=== PATIENT | male | born 1955 | race Caucasian/White ===

== ENCOUNTER 2017-09-22 23:19 | Inpatient (IN) | payer OTHER ==
[~2017-09-22] VITALS: Ht 167.6 cm; Wt 81.8 kg
[2017-09-23 00:11] LABS: BASOPHIL % 0.5 % (0-2); PLATELET COUNT 261 x10^3mcL (130-400); RED CELL DISTRIBUTION WIDTH 13.9 % (11.5-14.5)
[2017-09-23 00:17] LABS: ALKALINE PHOSPHATASE 87 U/L (46-116); ALT/SGPT 21 U/L (16-63); AST/SGOT 15 U/L (15-37); BILIRUBIN TOTAL 0.3 mg/dL (0.20-1.00); CARBON DIOXIDE 28.3 mmol/L (21-32); CHLORIDE SERUM 104 mmol/L (98-107); CREATININE SERUM 1.1 mg/dL (0.7-1.3); GFR1 > 60 mL/min; LIPASE 405 IU/L (73-393); POTASSIUM SERUM 3.9 mmol/L (3.5-5.1); SODIUM SERUM 141 mmol/L (136-145)
[2017-09-23 00:22] LABS: TOTAL PROTEIN, SERUM 8.6 g/dL (6.4-8.2)
[2017-09-23 00:23] LABS: GLUCOSE SERUM 53 mg/dL (74-106)
[2017-09-23 01:14] LABS: microscopic required? NO
[2017-09-23 01:44] LABS: UA SPECIFIC GRAVITY <=1.005 (1.005-1.035); urine erythrocyte NEGATIVE (NEGATIVE)
[2017-09-23] MEDS ORDERED: METFORMIN HYD1000 M2 PO ×2 (01:56→02:06)
[2017-09-23] MEDS ORDERED: NIFEDICAL XL60 MG PO (02:00)
[2017-09-23] MEDS ORDERED: POTASSIUM99 M1 PO (02:01)
[2017-09-23] MEDS ORDERED: MAGNESIUM27 MG PO (02:02)
[2017-09-23] MEDS ORDERED: BAYER ASPIRIN C81 MG PO (02:04)
[2017-09-23] MEDS ORDERED: BACLOFEN10 MG PO (02:05)
[2017-09-23] MEDS ORDERED: LOVASTATIN20 MG PO (02:07)
[2017-09-23] MEDS ORDERED: LIO10 PO (02:07)
[2017-09-23 05:07] VITALS: BP 150/96
[2017-09-23 06:25] VITALS: BP 150/96
[2017-09-23 08:00] LABS: CALCIUM 8.3 mg/dL (8.5-10.1); CARBON DIOXIDE 26.8 mmol/L (21-32); CHLORIDE SERUM 104 mmol/L (98-107); CREATININE SERUM 0.9 mg/dL (0.7-1.3); GFR1 > 60 mL/min; GLUCOSE SERUM 69 mg/dL (74-106); LIPASE 842 IU/L (73-393); POTASSIUM SERUM 3.5 mmol/L (3.5-5.1); SODIUM SERUM 139 mmol/L (136-145)
[2017-09-23 09:26] VITALS: BP 137/99
[2017-09-23 13:35] VITALS: BP 140/87
[2017-09-23 18:00] VITALS: BP 139/89
[2017-09-23 18:52] LABS: AMYLASE 93 U/L (25-115); LIPASE 344 IU/L (73-393)
[2017-09-23 20:15] VITALS: BP 139/89
== END 2017-09-23 21:57 | disposition home or self-care (01) | DRG 420 ==
LOC: ED 23:19 → DU 09-23 03:19
PROVIDERS: Emergency Medicine; Internal Medicine Pulmonary Disease; ADMIT Internal Medicine Pulmonary Disease
DX: E11.649 Type 2 diabetes mellitus with hypoglycemia without coma (principal); I10 Essential (primary) hypertension; Z86.73 Personal history of transient ischemic attack (TIA), and cerebral infarction without residual deficits; Z79.4 Long term (current) use of insulin; Z23 Encounter for immunization
CPT/HCPCS: 82962; 90658; 90732; J1956; J3490; J7030; J7042; J7070; Q0092

== ENCOUNTER 2017-09-29 16:26 | Inpatient (IN) | payer OTHER ==
[~2017-09-29] VITALS: Ht 167.6 cm; Wt 79.4 kg
[~2017-09-29 16:26] MED LIST: BACLOFEN10 MG PO; BAYER ASPIRIN C81 MG PO; LIO10 PO; LOVASTATIN20 MG PO; MAGNESIUM27 MG PO; METFORMIN HYD1000 M2 PO; NIFEDICAL XL60 MG PO; POTASSIUM99 M1 PO
--- NOTE | 2017-09-29 16:39 | NUR ---
PT BIBA FROM HOME FOR C/O ABD PAIN AND CONSTIPATION, LAST BM X1 WEEK PER MEDICS, PT HAS HX OF CVA, GCS 14, LIVES AT HOME WITH MOTHER, PT IS NONAMBULATORY, PT UNABLE TO DESCRIBE ABD PAIN, PT REPORTS "IN THE FRONT", PT ABLE TO STATE HIS FIRST NAME WHEN ASKED, UNABLE TO STATE , PT STATES "KALLIE", BS WAS 137 PER MEDICS, PT SINUS TACH IN 140'S PER EMS, THEY ATTEMPTED IV STICK BUT PT TREMORING, REPORT TO MONALISA ROWLAND TO ASSUME CARE
--- NOTE | 2017-09-29 16:43 | NUR ---
REC'D BIBA, AAOX2, C/O ABD PAIN SINCE YESTERDAY, STATES VOMITED YESTERDAY. PT POINTS TO STOMACH, UNABLE TO COMMUNICATE LEVEL OF PAIN. ON RA, BREATHING TACHYPNEA WITH USE OF ACCESSORY MUSCLES. WILL CONTINUE TO MONITOR.
[2017-09-29 17:18] LABS: BASOPHIL % 0.3 % (0-2); PLATELET COUNT 312 x10^3mcL (130-400); RED CELL DISTRIBUTION WIDTH 13.6 % (11.5-14.5)
[2017-09-29 17:25] LABS: CALCIUM 9.1 mg/dL (8.5-10.1); CARBON DIOXIDE 28.4 mmol/L (21-32); CHLORIDE SERUM 99 mmol/L (98-107); CREATININE SERUM 1.1 mg/dL (0.7-1.3); GFR1 > 60 mL/min; GLUCOSE SERUM 157 mg/dL (74-106); SODIUM SERUM 138 mmol/L (136-145)
[2017-09-29 17:41] LABS: CK-MB 0.6 ng/mL (0-3.6)
[2017-09-29 17:46] LABS: ALBUMIN 3.9 g/dL (3.4-5.0); ALKALINE PHOSPHATASE 93 U/L (46-116); ALT/SGPT 21 U/L (16-63); AST/SGOT 13 U/L (15-37); BILIRUBIN TOTAL 0.4 mg/dL (0.20-1.00)
[2017-09-29 17:47] LABS: TOTAL PROTEIN, SERUM 8.9 g/dL (6.4-8.2)
--- NOTE | 2017-09-29 19:09 | NUR ---
PROVIDED REPORT TO ASHLEY ROWLAND FOR CONTINUITY OF CARE.
--- NOTE | 2017-09-29 19:12 | NUR ---
PT RESTING, WITH FAMILY AT BEDSIDE. PT IN NO ACUTE DISTRESS. PER FAMILY PT HAS ATAXIA, DUE TO HX OF STROKE. PT WAS ABLE TO VERBALIZED HE FEELS GOD
--- NOTE | 2017-09-29 20:31 | NUR ---
MEDICATED PT PER E-MAR, PT TOLERATED
[2017-09-29] MEDS ORDERED: METFORMIN HCL1000 MG PO (20:39)
[2017-09-29] MEDS ORDERED: POTASSIUM CHLO10 MEQ (20:40)
[2017-09-29] MEDS ORDERED: MAGNESIUM OXID400 MG (20:40)
[2017-09-29] MEDS ORDERED: LOVASTATIN20 MG (20:41)
[2017-09-29] MEDS ORDERED: BAYER ASPIRIN C81 MG PO (20:41)
[2017-09-29] MEDS ORDERED: BACLOFEN20 MG (20:41)
[2017-09-29] MEDS ORDERED: NIFEDIPINE60 MG PO (20:42)
[2017-09-29 20:49] LABS: microscopic required? YES; urine erythrocyte 2+ (NEGATIVE)
--- NOTE | 2017-09-29 20:50 | NUR ---
GAVE REPORT TO MARTÍN ROWLAND, TO ASSUME CARE POST TRANSFER
--- NOTE | 2017-09-29 21:15 | NUR ---
RECEIVED PT FROM ED VIA [facility], CAME IN DUE TO ABDOMINAL PAIN AND CONSTIPATION X1 WEEK. AAOX1 (PERSON ONLY). GARBLED SPEECH. W/ LEFT SIDED WEAKNESS. NO SOB NOTED, LUNG SOUNDS CTA. NO S/S OF CHEST PAIN/PRESSURE. NO S/S OF ABDOMINAL PAIN. BOWEL SOUNSD HYPOACTIVE. LAST BM WAS ABOUT 1 WEEK AGO. ABDOMEN IS MILDLY FIRM. W/ MALAYSIAN 16 GARCIA CATHETER, SECURED W/ STATLOCK ON THE ANTERIOR ASPECT OF THE RIGHT THIGH, DRAINING W/ BRYCE COLORED URINE. W/ MILD PENILE BLEED NOTED. ON AIR MATTRESS. HEELS ELEVATED W/ PILLOW. W/ BLANCHABLE REDNESS ON THE BUTTOCKS, DIANELYS. HOB ELEVATED AT 40 DEG. SIDE RAILS UPX2. CALL LIGHT ON REACH. PRIMARY NURSE MARTÍN AT BEDSIDE FOR CONTINUITY OF CARE.
[2017-09-29 21:26] VITALS: BP 123/84
[2017-09-29 21:29] VITALS: Ht 167.6 cm; Wt 79.4 kg
--- NOTE | 2017-09-29 21:30 | NUR ---
RECEIVED PT FROM ER, PT SEEN, AWAKE, ALERT AND ORIENTED TO SELF ONLY, GARBLED SPEECH, BLOOD SUGAR CHECKED-128 MG/DL, PT ABLE TO DRINK SOME LIQUID AND WITHOUT ANY DIFFICULTY OR ASP, DULCOLAX SUPP GIVEN X 1 UPON ADMISSION, GARCIA CARE GIVEN, PT'S SISTER VERNON CALLED AND UPDATED PT'S CONDITION WITH FAMILY, BED ALARM ON, SIDE RAILS UP, CLUTTER FREE ENVIRONMENT MAINTAINED, NO DISTRESS NOTED, WILL KEEP TO MONITOR.
--- NOTE | 2017-09-30 00:30 | NUR ---
ROUNDS MADE, PT AWAKE AT THIS TIME AND STATED THAT CAN'T FALL ASLEEP, RESTORIL 15 MG VIA ORAL ADMINISTERED, STILL NO BM AFTER DULCOLAX SUPP, BED ALARM ON, NO DISTRESS NOTED, WILL KEEP TO MONITOR.
--- NOTE | 2017-09-30 01:03 | NUR ---
PT ASLEEP BUT EASILY AROUSABLE AFTER MEDICATED WITH RESTORIL PO, IVF INFUSING WELL, NO DISTRESS NOTED, WILL KEEP TO MONITOR.
--- NOTE | 2017-09-30 01:23 | NUR ---
PT AWAKE AND STATED THAT HE IS HAVING BACK PAIN 09/04, CALLED DR ANG AND NEW ORDER RECEIVED VIA TELEPHONE FOR DILAUDID 0.5MG IVP Q4HRS PRN AND NORCO 5/325 PO Q4HRS PRN, ORDER ENTERED AND DILAUDID 0.5MG VIA IVP ADMINISTERED ORDERED.
--- NOTE | 2017-09-30 02:02 | NUR ---
ROUNDS MADE, PT ASLEEP, BREATHING EVEN AND UNLABORED, NO RESP DISTRESS NOTED, BED ALARM ON, NO DISTRESS NOTED, WILL KEEP TO MONITOR.
--- NOTE | 2017-09-30 05:29 | NUR ---
PT ASLEEP BUT EASILY AROUSABLE, SLEPT ON AND OFF WHOLE NIGHT, C/O OF BACK PAIN, ADMINISTERED DILAUDID 0.5MG VIA IVP X 1 WITH GOOD RELIEF, IVF INFUSING WELL, STILL WITH MILD PENILE BLEEDING AROUND GARCIA SITE, MORNING BLOOD SUGAR-81 MG/DL, MORNING CARE GIVEN, NO DISTRESS NOTED, WILL KEEP TO MONITOR.
[2017-09-30 05:30] VITALS: BP 124/82
[2017-09-30 07:10] LABS: BASOPHIL % 0.6 % (0-2); PLATELET COUNT 271 x10^3mcL (130-400); RED CELL DISTRIBUTION WIDTH 13.9 % (11.5-14.5)
[2017-09-30 07:18] LABS: CALCIUM 8.4 mg/dL (8.5-10.1); CARBON DIOXIDE 29.5 mmol/L (21-32); CHLORIDE SERUM 103 mmol/L (98-107); CREATININE SERUM 0.9 mg/dL (0.7-1.3); GFR1 > 60 mL/min; GLUCOSE SERUM 89 mg/dL (74-106); POTASSIUM SERUM 4.4 mmol/L (3.5-5.1); SODIUM SERUM 139 mmol/L (136-145)
--- NOTE | 2017-09-30 07:45 | NUR ---
ALERT AND ORIENTED. SITTING UP EATING BREAKFAST. BREATHING FREELY ON RA. ABDOMINAL TENDERNESS TO PALPATION. HAD BM DURING TEACHER COUNSELOR. BREATHING FREELY ON RA. MED-SURG PT. NS INFUSING 70 CC HOUR. GARCIA DRAINING DARK BRYCE URINE. VSS. AFEBRILE. HOB ELEVATED FOR BREAKFAST. BED IN LOW POSITON. BED ALARM ON. SR UP X 2. CALL LIGHT WITHIN REACH.
[2017-09-30] MEDS ORDERED: CIPRO500 MG PO (08:55)
[2017-09-30 09:16] VITALS: BP 133/87
--- NOTE | 2017-09-30 09:35 | NUR ---
RADHA AND IV DC'D ORDERED BY DR. HERNANDEZ. PT TO BE DC'D TODAY.
[2017-09-30 09:53] VITALS: BP 133/87
--- NOTE | 2017-09-30 12:51 | NUR ---
PT WAITING FOR SISTER TO COME PICK HIM UP. DRESSED AND READY TO GO.
--- NOTE | 2017-09-30 14:00 | NUR ---
DC'D TO HOME. PICKED UP BY SISTER VERNON WHO ALSO SIGNED DISCHARGE INSTRUCTIONS FOR PT. PT UNABLE. PRESCRIPTION GIVEN FOR CIPRO.
== END 2017-09-30 13:55 | disposition home or self-care (01) | DRG 463 ==
LOC: ED 16:26 → MU 20:01
PROVIDERS: Emergency Medicine; Internal Medicine Pulmonary Disease; ADMIT Internal Medicine Pulmonary Disease
DX: N39.0 Urinary tract infection, site not specified (principal); I10 Essential (primary) hypertension; E11.9 Type 2 diabetes mellitus without complications; K59.00 Constipation, unspecified; Z86.73 Personal history of transient ischemic attack (TIA), and cerebral infarction without residual deficits; Z79.899 Other long term (current) drug therapy
CPT/HCPCS: 82962; 83880; J0696; J1170; J1650; J2405; J3010; J7030; Q0092

== ENCOUNTER 2017-11-02 02:49 | Inpatient (IN) | payer OTHER ==
[~2017-11-02] VITALS: Ht 180.3 cm; Wt 78.1 kg
[~2017-11-02 02:49] MED LIST changes: +BACLOFEN20 MG; +CIPRO500 MG PO; +LOVASTATIN20 MG; +MAGNESIUM OXID400 MG; +METFORMIN HCL1000 MG PO; +NIFEDIPINE60 MG PO; +POTASSIUM CHLO10 MEQ
[2017-11-02 04:01] LABS: BASOPHIL % 1.4 % (0-2); PLATELET COUNT 302 x10^3mcL (130-400); RED CELL DISTRIBUTION WIDTH 12.8 % (11.5-14.5)
[2017-11-02 04:05] LABS: CALCIUM 9.1 mg/dL (8.5-10.1); CARBON DIOXIDE 28.6 mmol/L (21-32); CHLORIDE SERUM 105 mmol/L (98-107); CREATININE SERUM 1.2 mg/dL (0.7-1.3); GFR1 > 60 mL/min; GLUCOSE SERUM 117 mg/dL (74-106); POTASSIUM SERUM 3.8 mmol/L (3.5-5.1); SODIUM SERUM 142 mmol/L (136-145)
[2017-11-02 04:20] LABS: microscopic required? NO
[2017-11-02 04:35] LABS: UA SPECIFIC GRAVITY >=1.030 (1.005-1.035); urine erythrocyte NEGATIVE (NEGATIVE)
[2017-11-02] MEDS ORDERED: METFORMIN HYD1000 M2 PO (07:05)
[2017-11-02] MEDS ORDERED: MAGNESIUM OXID400 MG PO (07:06)
[2017-11-02] MEDS ORDERED: ASPIR 8181 MG PO (07:06)
[2017-11-02] MEDS ORDERED: POTASSIUM99 M1 PO (07:06)
[2017-11-02] MEDS ORDERED: BACLOFEN10 MG PO (07:07)
[2017-11-02] MEDS ORDERED: LOVASTATIN10 MG PO (07:08)
[2017-11-02 16:04] VITALS: BP 133/77
[2017-11-02 17:01] VITALS: BP 139/90
== END 2017-11-02 19:10 | disposition home or self-care (01) | DRG 254 ==
LOC: ED 02:49 → MU 07:43
PROVIDERS: Emergency Medicine Emergency Medical Services; ADMIT Internal Medicine Pulmonary Disease
DX: K59.00 Constipation, unspecified (principal); I69.954 Hemiplegia and hemiparesis following unspecified cerebrovascular disease affecting left non-dominant side; I10 Essential (primary) hypertension; I69.021 Dysphasia following nontraumatic subarachnoid hemorrhage; E86.0 Dehydration; R33.9 Retention of urine, unspecified; R00.0 Tachycardia, unspecified; E11.9 Type 2 diabetes mellitus without complications; E78.5 Hyperlipidemia, unspecified
CPT/HCPCS: 82962; J0456; J0696; J3490; J7030

== ENCOUNTER 2018-04-24 09:24 | Observation (INO) | payer OTHER ==
[~2018-04-24] VITALS: Ht 175.3 cm; Wt 82.8 kg
[~2018-04-24 09:24] MED LIST changes: +ASPIR 8181 MG PO; +LOVASTATIN10 MG PO; +MAGNESIUM OXID400 MG PO
[2018-04-24] MEDS ORDERED: BACLOFEN10 MG PO (09:33)
[2018-04-24] MEDS ORDERED: METFORMIN HCL850 MG PO (09:34)
[2018-04-24 09:36] VITALS: Ht 175.3 cm; Wt 82.8 kg
[2018-04-24 10:17] LABS: CALCIUM 9.1 mg/dL (8.5-10.1); CHLORIDE SERUM 114 mmol/L (98-107); CREATININE SERUM 0.9 mg/dL (0.7-1.3); GFR1 > 60 mL/min; GLUCOSE SERUM 150 mg/dL (74-106); POTASSIUM SERUM 3.5 mmol/L (3.5-5.1); SODIUM SERUM 144 mmol/L (136-145)
[2018-04-24 10:22] LABS: ALBUMIN 3.5 g/dL (3.4-5.0); ALKALINE PHOSPHATASE 73 U/L (46-116); ALT/SGPT 23 U/L (16-63); AST/SGOT 17 U/L (15-37); BILIRUBIN TOTAL 0.7 mg/dL (0.20-1.00)
[2018-04-24 10:23] LABS: TOTAL PROTEIN, SERUM 8.3 g/dL (6.4-8.2)
[2018-04-24 11:23] LABS: BASOPHIL % 0.3 % (0-2); PLATELET COUNT 259 x10^3mcL (130-400); RED CELL DISTRIBUTION WIDTH 14.1 % (11.5-14.5)
[2018-04-24 14:28] LABS: CK-MB < 0.5 ng/mL (0-3.6); CREATINE KINASE 56 U/L (39-308)
[2018-04-24 14:30] VITALS: BP 114/60
[2018-04-24 15:09] VITALS: BP 114/60
[2018-04-24 16:42] LABS: microscopic required? YES; urine erythrocyte NEGATIVE (NEGATIVE)
[2018-04-24 18:51] LABS: CK-MB 0.9 ng/mL (0-3.6)
[2018-04-24 20:41] VITALS: BP 133/83
[2018-04-25 04:06] LABS: CALCIUM 8.8 mg/dL (8.5-10.1); CARBON DIOXIDE 29.6 mmol/L (21-32); CHLORIDE SERUM 108 mmol/L (98-107); CREATININE SERUM 0.8 mg/dL (0.7-1.3); GFR1 > 60 mL/min; GLUCOSE SERUM 106 mg/dL (74-106); HDL CHOLESTEROL 40 mg/dL (40-60); POTASSIUM SERUM 3.9 mmol/L (3.5-5.1); SODIUM SERUM 145 mmol/L (136-145); TRIGLYCERIDES 32 mg/dL (<150)
[2018-04-25 04:07] LABS: BASOPHIL % 0.8 % (0-2); PLATELET COUNT 250 x10^3mcL (130-400); RED CELL DISTRIBUTION WIDTH 14.5 % (11.5-14.5)
[2018-04-25 04:13] LABS: CHOLESTEROL 106 mg/dL (<200); CHOLESTEROL/HDL RATIO 2.7
[2018-04-25 04:19] LABS: CK-MB 0.8 ng/mL (0-3.6)
[2018-04-25 06:35] VITALS: BP 135/96
[2018-04-25 14:31] VITALS: BP 136/97
[2018-04-25 18:41] VITALS: BP 97/69
[2018-04-25] MEDS ORDERED: BACLOFEN10 MG PO (19:13)
[2018-04-25] MEDS ORDERED: METFORMIN HYD1000 M2 PO (19:14)
[2018-04-25 19:16] VITALS: BP 97/69
== END 2018-04-25 21:22 | disposition home or self-care (01) | DRG 113 ==
LOC: ED 09:24 → DU 10:55
PROVIDERS: Emergency Medicine; Internal Medicine
DX: J06.9 Acute upper respiratory infection, unspecified (principal); I69.354 Hemiplegia and hemiparesis following cerebral infarction affecting left non-dominant side; I10 Essential (primary) hypertension; K56.41 Fecal impaction; E11.9 Type 2 diabetes mellitus without complications; I69.393 Ataxia following cerebral infarction; I69.322 Dysarthria following cerebral infarction; I25.10 Atherosclerotic heart disease of native coronary artery without angina pectoris
CPT/HCPCS: 82962; 83880; 85378; 94150; A9500; G0378; J0132; J1650; J1885; J2785; J7030; J7042; J7613; J7620; J7644; Q0092

== ENCOUNTER 2019-04-06 23:26 | Inpatient (IN) | payer OTHER ==
[~2019-04-06] VITALS: Ht 175.3 cm; Wt 77.1 kg
[~2019-04-06 23:26] MED LIST changes: +METFORMIN HCL850 MG PO
--- NOTE | 2019-04-06 23:30 | NUR ---
PT BIB AMBULANCE FOR C/O SOB. PT WAS DISCHARGED FROM [facility] YESTERDAY WITH A DIAGNOSIS OF PNEUMONIA. PT AT HOME STATED SHE NOTICED THAT HE WAS NOT HIS USUAL SELF AND THOUGHT HE MIGHT BE HAVING ANOTHER STROKE BECAUSE HE HAD HAD A FEW IN [place] PAST. PT IS TAKING MUCINEX AND AZITHROMYCIN THAT WAS PRESCRIBED BY [facility]. PT IS EXTREMELY DIAPHORETIC AND PALE. PT IS ALERT AND ORIENTED AT BEDSIDE PER SON. PT RESPONDS TO VERBAL STIMULI AND IS ABLE TO FOLLOW COMMANDS. PT SPEACH IS HARD TO UNDERSTAND, BUT HE RESPONDS APPROPRIATELY TO QUESTIONS. PT IS AX O X 4. PT STATES THAT HE HAS BURNING IN HIS CHEST. PT CAME FROM HOME WHERE HE IS CARED FOR BY HIS . PT HAS EQUAL AND LABORED CHEST RISE. VS UNSTABLE AND MD THORPE WANTS BIPAP FOR PT. PT HAS HX OF 3 STROKES, HTN, DM. PT HAS LEFT SIDED DEFICITS FROM LAST STROKE IN 2014. CARDIAC MONITORS AND PLETH OX MONITORS IN PLACE. WILL CONTINUE TO MONITOR.
--- NOTE | 2019-04-06 23:32 | NUR ---
PT HAS EXPIRATORY WHEEZES IN UPPER LOBES AND BL WHEEZING ALL OVER.
--- NOTE | 2019-04-06 23:35 | NUR ---
PT HAS BLANCHABLE REDNESS TO BACK AND BUTTOCKS AREA. SKIN INTACT.
--- NOTE | 2019-04-06 23:49 | NUR ---
SON AT BEDSIDE
--- NOTE | 2019-04-06 23:52 | NUR ---
X RAY AT BEDSIDE
--- NOTE | 2019-04-06 23:53 | NUR ---
FIONA DEL REAL AT BEDSIDE FOR EKG
[2019-04-07] VITALS (7 sets, daily range): BP systolic 114–140; BP diastolic 77–95
[2019-04-07 00:03] LABS: BASOPHIL % 0.5 % (0-2); CALCIUM 8.9 mg/dL (8.5-10.1); CARBON DIOXIDE 26.6 mmol/L (21-32); CHLORIDE SERUM 100 mmol/L (98-107); GFR1 > 60 mL/min; GLUCOSE SERUM 127 mg/dL (74-106); PLATELET COUNT 237 x10^3mcL (130-400); POTASSIUM SERUM 3.4 mmol/L (3.5-5.1); SODIUM SERUM 139 mmol/L (136-145)
--- NOTE | 2019-04-07 00:03 | NUR ---
PT IS HEARD TO HAVE BARKING COUGH
[2019-04-07 00:04] LABS: RED CELL DISTRIBUTION WIDTH 14.6 % (11.5-14.5)
[2019-04-07 00:07] LABS: ALBUMIN 3.6 g/dL (3.4-5.0); ALKALINE PHOSPHATASE 63 U/L (46-116); ALT/SGPT 33 U/L (16-63); AST/SGOT 45 U/L (15-37); BILIRUBIN TOTAL 0.6 mg/dL (0.20-1.00)
[2019-04-07 00:08] LABS: TOTAL PROTEIN, SERUM 8.4 g/dL (6.4-8.2)
--- NOTE | 2019-04-07 00:19 | NUR ---
PT APPEARS LESS SWEATY AND STATES HE DOES FEEL BETTER
[2019-04-07 00:28] LABS: UA SPECIFIC GRAVITY 1.025 (1.005-1.035); microscopic required? YES; urine erythrocyte 1+ (NEGATIVE)
[2019-04-07 00:40] LABS: CK-MB 0.8 ng/mL (0-3.6)
--- NOTE | 2019-04-07 00:45 | NUR ---
PT CLEANED AND CHANGED PROVIDED WITH CLEAN LINENS AND PILLOWS FOR COMFORT
--- NOTE | 2019-04-07 00:59 | NUR ---
RT AT BEDSIDE FOR BREATHING TX
--- NOTE | 2019-04-07 01:10 | NUR ---
PER PT ALLERGY LIST RECEIVED FROM FAMILY MEMBER PT IS ALLERGIC TO LEVOFLOXACIN. WILL NOT GIVE LEVOFLOXACIN PER EMAR. MD THORPE MADE AWARE. ONLY NEW ORDER TO HOLD LEVO.
[2019-04-07] MEDS ORDERED: POTASSIUM CHLO10 MEQ (01:13)
[2019-04-07] MEDS ORDERED: LANTUS SOLOS100 U/M1 SQ (01:13)
[2019-04-07] MEDS ORDERED: MAGNESIUM OXID400 MG (01:13)
[2019-04-07] MEDS ORDERED: V5 PO (01:14)
[2019-04-07] MEDS ORDERED: BACLOFEN20 MG PO (01:15)
[2019-04-07] MEDS ORDERED: AMLODIPINE BESY10 M2 PO (01:15)
--- NOTE | 2019-04-07 01:37 | NUR ---
report called to ARNALDO ROWLAND [id number]
--- NOTE | 2019-04-07 01:47 | NUR ---
PT IS SEEN TO HAVE OXYGEN OF 85% WITH GOOD WAVEFORM ON ROOM AIR. PER MD ORDERS. PLACE PT ON OXYGEN AND WANTS TO TRANSFER TO [facility]
[2019-04-07 01:57] LABS: MAGNESIUM 1.6 mg/dL (1.8-2.4); PHOSPHOROUS 2.9 mg/dL (2.5-4.9)
[2019-04-07 02:00] LABS: CHOLESTEROL/HDL RATIO 2.3
--- NOTE | 2019-04-07 02:04 | NUR ---
TRANSFERED PATIENT ON BIPAP FROM ER TO ROOM 238 WITH NO INCIDENT. AMBU BAG AND MONITOR ON BED. BIPAP IS PLUGGED INTO RED OUTLET, BRAKES ARE ON AND SETTINGS ARE THE SAME.
--- NOTE | 2019-04-07 02:05 | NUR ---
RECIEVED PATIENT FROM ED VIA GURNEY ACCOMPANIED BY SISTER AND NURSE. PATIENT IS ALERT, FOLLOWS COMMANDS BUT SPPECH IS GARBLED. SISTER REPORTS HE HAS APHASIA AND LEFT SIDED WEAKNESS FROM 3 CVAS. PATIENT ON TELE 12, NSR. DENIES PAIN. BIPAP IN PLACE, OXYGEN 97% ALL VITALS WNL. PATIENT APPEARS COMFORTABLE IN BED. LUNGS HAVE BILATERAL WHEEZE, DIMINISHED AT BASES. NO EDEMA NOTED. PULSES ARE MODERATE. BS ACTIVE, ABDOMEN SOFT AND FLAT. PATIENT ABLE TO EAT REGULAR DIET WITH NO ISSUES SWALLOWING. PATIENT IS INCONTINENT OF URINE. SKIN IS WARM DRY AND COMPLETELY INTACT. PATIENT UNABLE TO REPOSITION SELF DUE TO SEVERE LEFT SIDED WEAKNESS. AIR MATTRESS IN PLACE WILL REPOSITION Q 2 HRS. BAG OF NS FROM ED IS INFUSING TO RFA AT 150 MLS/HR. WILL FINISH BAG THEN START MAINTENANCE FLUID RATE OF 100. MRSA SWAB OBTAINED. ALLERGY BAND AND ID BAND IN PLACE. BED LOCKED AND IN LOWEST POSITION. PATIENT INSTRUCTED ON USE OF CALL LIGHT.
[2019-04-07 02:07] LABS: T3 TOTAL 0.93 ng/mL
--- NOTE | 2019-04-07 02:14 | NUR ---
ALARM SETTINGS VERIFIED. HIGH RATE 40 LOW RATE 12 HIGH VT 1500ML LOW VT 200ML HIGH P 30 LOW P 6 LOW VE 6.0.
[2019-04-07 02:17] LABS: FREE T4 1.31 ng/dL (0.76-1.46); FREE THYROXINE INDEX 2.9 ug/dL (1.4-4.5); T4(THYROXINE) 8.2 ug/dL (4.7-13.3)
--- NOTE | 2019-04-07 03:15 | NUR ---
PATIENT KEEPS TRYING TO TAKE BIPAP MACHINE, HE STATES HE DOES NOT LIKE IT. RT PAGED TO TRIAL OXYGEN ON NC GIVEN THAT THE PATIENT'S ABG PH IS WNL, CO2 IS LOW, AND RATE IS WNL.
--- NOTE | 2019-04-07 03:23 | NUR ---
BIPAP REMOVED, PT PLACED ON 2L NC. MCINTOSH RN AT BEDSIDE. SPO2 95% ON 2L.
--- NOTE | 2019-04-07 03:30 | NUR ---
PATIENT IS TOLERATING 2L NC WELL, SATTING 95%.
--- NOTE | 2019-04-07 03:58 | NUR ---
PT TRANSPORTED UPSTAIRS WITH ERT, RT, AND I AND HANDOFF GIVEN TO ARNALDO ROWLAND FOR CONTINUATION OF CARE. NO DISTRESS UPON TRANSFER.
--- NOTE | 2019-04-07 06:15 | NUR ---
PATIENT'S WHEEZE HAS BECOME LOUDER. RT PAGED TO PROVIDE BREATHING TREATMENT.
--- NOTE | 2019-04-07 06:24 | NUR ---
RT AT BEDSIDE. PATIENT SATTING 96% ON 2L NC. NO FURTHER SIGNIFICNAT EVENTS. IV INFUSING WELL. BED LOCKED AND IN LOWEST POSITION. CALL LIGHT AND BEDSIDE ATBLE WITHIN REACH. WILL ENDORSE CARE TO MORNING NURSE.
--- NOTE | 2019-04-07 06:30 | NUR ---
PLACED PATIENT BACK ONTO BIPAP POST PRN TX DUE TO INCREASED WOB. RR 40 HR 97.
[2019-04-07 06:37] LABS: CALCIUM 7.8 mg/dL (8.5-10.1); CARBON DIOXIDE 26.4 mmol/L (21-32); CHLORIDE SERUM 107 mmol/L (98-107); GFR1 > 60 mL/min; GLUCOSE SERUM 96 mg/dL (74-106); POTASSIUM SERUM 3.9 mmol/L (3.5-5.1); SODIUM SERUM 141 mmol/L (136-145)
--- NOTE | 2019-04-07 07:30 | NUR ---
RECIEVED REPORT FROM [employer] ENTERPRISE PORTAL CONSULTANT NURSE TO ASSUME ALL CARES. ALL QUESTIONS AND CONCERNS ADDRESSED. PATIENT IS AWAKE/ALERT ON BI-PAP. NO SIGNS OF RESP DISTRESS. NS INFUSING AT 100 ML/HR VIA RFA IV WITH NO SIGNS OF INFILTRATION NOTED. BED TO LOWEST POSITION, SIDE RAILS UP X3, CALL LIGHT WITHIN REACH. WILL CONTINUE T0 MONITOR.
[2019-04-07 07:31] LABS: BASOPHIL % 0.6 % (0-2); PLATELET COUNT 208 x10^3mcL (130-400); RED CELL DISTRIBUTION WIDTH 14.4 % (11.5-14.5)
--- NOTE | 2019-04-07 10:37 | NUR ---
PATIENT URINATED X1 AND CLEANED UP. PATIENT REPOSTIONED TO RIGHT SIDE WITH HOB ELEVATED AND PILLOWS IN PLACE TO ALLEVIATE PRESSURE POINTS. SAEID, RT STUDENT AT BEDSIDE AND APPLIYING A HUMIDIFIER TO THE OXYGEN. PATIENT TOLERATES WELL. WILL CONTINUE TO MONITOR.
--- NOTE | 2019-04-07 12:04 | NUR ---
DR. MCGOWAN AT BEDSIDE TO ASSESS PATIENT. UPDATES PROVIDED AND POC DISCUSSED. WILL CONTINUE TO MONITOR.
--- NOTE | 2019-04-07 12:31 | NUR ---
AUDIBLE WHEEZES AUSCULTATED. MELANIE RT AND SAEID RT STUDENT AT BEDSIDE. PATIENT APPEARS ANXIOUS, HR 140-150'S. PATIENT PLACED BACK ON BI-PAP 10/31, RATE 12, FI02 30%. PATIENT ALSO HAVING MUSCLE SPASMS. PATIENT RECENTLY RECIEVED BACLOFEN PO (SEE EMAR). PATIENT'S SISTER AT BEDSIDE AND WOULD LIKE TO SPEAK TO A DOCTOR REGARDING THE BACLOFEN DOSING. DR. GEORGE PAGED AT THIS TIME. WILL CONTINUE TO MONITOR.
--- NOTE | 2019-04-07 13:02 | NUR ---
DR. GEORGE AT BEDSIDE TO ASSESS PATIENT AND TALKING TO PATIENT'S DAUGHTER REGARDING BACLOFEN DOSING. DR. GEORGE WILL READJUST MEDICATION APPROPRIATE. ALSO, DR. HU MADE AWARE PATIENT'S HEART RATE IS IN THE 140'S. NO FURTHER ORDERS AT THIS TIME. WILL CONTINUE TO MONITOR.
--- NOTE | 2019-04-07 13:30 | NUR ---
AXILLARY TEMP 103.[address] CABALLERO MADE AWARE. WILL PUT ORDERS IN FOR 2 LITER NS BOLUS AND RECHECK LACTIC ACID. ICE PACKS APPLIED UNDER BILATERAL ARMPITS, BILATERAL GROIN AREAS AND BEHIND NECK. SHEET REMOVED. TYLENLOL GIVEM (SEE EMAR). WILL CONTINUE TO MONITOR.
--- NOTE | 2019-04-07 14:03 | NUR ---
PATIENT'S HEART RATE IS MAINTAINING 130-140'S. DR. CABALLERO MADE AWARE. WILL CONTINUE TO MONITOR.
[2019-04-07 14:18] LABS: AMPHETAMINE QUAL UR NONE DETECTED (See below)
--- NOTE | 2019-04-07 15:02 | NUR ---
TEMPERATURE RECHECKED AND IS NOW 99.2 TEMPORAL. ICE PACKS REMOVED AT THIS TIME. WILL CONTINUE TO MONITOR.
--- NOTE | 2019-04-07 18:09 | NUR ---
SECOND BAG OF NS LITER DONE. LAST TEMPERATURE WAS 99.7. LACTIC ACID CAME BACK AT 1.3. PATIENT CURRENTLY SLEEPING IN BED WITH BI-PAP IN PLACE. NO SIGNS OF DISTRESS. CURRENT HR IS SR 99 BPM. WILL CONTINUE TO MONITOR.
--- NOTE | 2019-04-07 19:41 | NUR ---
RECEIVED PT FROM DAY SHIFT RN. PT IS AWAKE ALERT AND ORIENTED X2, PT ABLE TO FOLLOW COMMANDS. BREATHING EVEN AND UNLABORED ON BIPAP, RT PROTOCOL. TELE #12 ST 102, PT DENIES ANY PAIN OR DISCOMFORT. IV RFA PATENT, INFUSING WELL. GENERALIZED WEAKNESS, PT NEEDS ASSISTANCE TO REPOSITION. NO SIGNS OF ACUTE DISTRESS NOTED. FAMILY AT BEDSIDE. CALL BUTTON WITHIN REACH. SAFETY PRECAUTIONS IN PLACE. WILL CONTINUE TO MONITOR.
--- NOTE | 2019-04-08 | NUR ---
PT RESTING, BREATHING EVEN AND UNLABORED WITH NO SIGNS OF DISTRESS NTOED. IV PATENT, INFUSING WELL. SAFETY PRECAUTIONS IN PLACE. CALL BUTTON WITHIN REACH. WILL CONTINUE TO MONITOR.
--- NOTE | 2019-04-08 01:53 | NUR ---
PT AWAKE BREATHING EVEN AND UNLABORED NC 2L/MIN WITH NO SIGNS OF DISTRESS NTOED. IV PATENT, INFUSING WELL. CHANGED AND REPOSITIONED PT. SAFETY PRECAUTIONS IN PLACE. CALL BUTTON WITHIN REACH. WILL CONTINUE TO MONITOR.
--- NOTE | 2019-04-08 04:55 | NUR ---
PT SLEPT ON AND OFF THROUGHOUT THE NIGHT WITH NO SIGNS OF DISTRESS NOTED. BREATHING EVEN AND UNLABORED ON NC 2L. RT PROTOCOL. IV PATENT AND INFUSING WELL, NO SIGNS OF INFILTRATION. REPOSITIONED EVERY TWO HOURS. MEDICATED PER EMAR. CALL BUTTON WITHIN REACH. SAFETTY PRECAUTIONS IN PLACE. WILL CONTINUE TO MONITOR AND ENDORSE CARE TO DAY SHIFT RN.
[2019-04-08 05:13] VITALS: BP 137/91
--- NOTE | 2019-04-08 07:00 | NUR ---
RECEIVED PT FROM TORCH STRAIGHTENER AND HEATER NURSE. PT IN BED SLEEPING, AROUSABLE, RESP EVEN AND UNLABORED ON NC AT 2L/MIN. NO ACUTE DISTRESS NOTED. ON TELE [address], HR: 105. IV TO RFA W/ NO SIGNS OF INFILTRATION, IVF INFUSING WELL. BED IN LOWEST POSITION AND CALL LIGHT WITHIN REACH. WILL CONTINUE TO MONITOR.
[2019-04-08 07:14] LABS: PLATELET COUNT 217 x10^3mcL (130-400)
--- NOTE | 2019-04-08 07:28 | NUR ---
PT AWAKE NO SIGNS OF DISTRESS NOTED. ENDORSED CARE TO DAY SHIFT RN, ALL QUESTIONS ADDRESSED.
[2019-04-08 07:41] LABS: BASOPHIL % 0 % (0-2); CALCIUM 8.3 mg/dL (8.5-10.1); CARBON DIOXIDE 23.1 mmol/L (21-32); CHLORIDE SERUM 108 mmol/L (98-107); CREATININE SERUM 0.9 mg/dL (0.7-1.3); GFR1 > 60 mL/min; GLUCOSE SERUM 164 mg/dL (74-106); MAGNESIUM 1.6 mg/dL (1.8-2.4); PHOSPHOROUS 2.1 mg/dL (2.5-4.9); POTASSIUM SERUM 3.7 mmol/L (3.5-5.1); RED CELL DISTRIBUTION WIDTH 14.6 % (11.5-14.5); SODIUM SERUM 142 mmol/L (136-145)
[2019-04-08 08:15] VITALS: BP 124/79
[2019-04-08 11:55] VITALS: BP 148/95
--- NOTE | 2019-04-08 12:34 | NUR ---
PT TAKEN OFF BIPAP AT THIS TIMETO EAT LUNCH. PLACED ON NC AT 2L/MIN AT THIS TIME. RT MADE AWARE. WILL PLACE BACK ON BIPAP AFTER MEAL. TOLERATING MEAL WELL W/ ASSISTANCE OF STUDENT NURSE. BED IN LOWEST POSITION AND CALL LIGHT WITHIN REACH. WILL CONTINUE TO MONITOR.
[2019-04-08 16:34] VITALS: BP 120/82
--- NOTE | 2019-04-08 17:45 | NUR ---
PT IN BED, HOB ELEVATED 30 DEGREES, HAVING DINNER W/ ASSISTANCE FROM ELAYNE PIERRE. TAKEN OFF BIPAP AT THIS TIME AND PLACED ON NC AT 3L/MIN. RESP EVEN AND UNLABORED, PT REPORTED MILD SOB BUT TOLERABLE, EATING MEAL W/ NO NOTED DISTRESS. IV TO RFA W/ NO SIGNS OF INFILTRATION, IVF INFUSING WELL. BED IN LOWEST POSITION AND CALL LIGHT WITHIN REACH. WILL ENDORSE TO ONCOMING NURSE.
--- NOTE | 2019-04-08 19:14 | NUR ---
RECEIVED PT FROM PREVIOUS SHIFT. PT IS AAO TO SELF, WHEN ASKED WHERE PATIENT IS AND , PT STATES "GOOD.". TELE #12 SHOWING NSR, DENIES CP. L SIDED WEAKNESS NOTED, BUE TREMORS OBSERVED. PER PT SISTER VERNON, PT TAKES BACLOFEN TO HELP TREMORS. DENIES PAIN. BREATHING E/U ON 2L OXYGEN NC, DENIES SOB, DENIES DIFFICULTY BREATHING, PURSED LIP BREATHING OBSERVED. BIPAP AT BEDSIDE. HOB ELEVATED. IV TO RFA CDI, IVF INFUSING WELL, NO ERYTHEMA OR SWELLING NOTED. CALL LIGHT WITHIN REACH. SAFETY MEASURES IN PLACE. WILL CONTINUE TO MONITOR.
[2019-04-08 21:08] VITALS: BP 110/70
--- NOTE | 2019-04-08 21:41 | NUR ---
PT TOLERATED MEDICATION ADMINISTRATION WELL. NO S/S ACUTE DISTRESS. DENIES PAIN. CALL LIGHT WITHIN REACH. WILL CONTINUE TO MONITOR.
--- NOTE | 2019-04-09 01:51 | NUR ---
PT RESTING IN BED WATCHING TV. DENIES PAIN. NO S/S ACUTE DISTRESS. CALL LIGHT WITHIN REACH. SAFETY MEASURES IN PLACE. WILL CONTINUE TO MONITOR.
[2019-04-09 05:44] VITALS: BP 123/89
[2019-04-09 06:28] LABS: PLATELET COUNT 227 x10^3mcL (130-400); RED CELL DISTRIBUTION WIDTH 14.5 % (11.5-14.5)
--- NOTE | 2019-04-09 06:30 | NUR ---
PT HAD RESTFUL NIGHT. DENIES PAIN. DENIES RESP. DISTRESS. NO S/S ACUTE DISTRESS. ALL NEEDS MET AND ATTENDED. NO CHANGES OVERNIGHT. CALL LIGHT WITHIN REACH. SAFETY MEASURES IN PLACE. WILL ENDORSE CARE TO ONCOMING SHIFT.
[2019-04-09 06:34] LABS: BASOPHIL % 0 % (0-2)
[2019-04-09 06:38] LABS: CALCIUM 8.3 mg/dL (8.5-10.1); CARBON DIOXIDE 25.4 mmol/L (21-32); CHLORIDE SERUM 109 mmol/L (98-107); CREATININE SERUM 0.8 mg/dL (0.7-1.3); GFR1 > 60 mL/min; GLUCOSE SERUM 151 mg/dL (74-106); MAGNESIUM 1.6 mg/dL (1.8-2.4); PHOSPHOROUS 2.7 mg/dL (2.5-4.9); POTASSIUM SERUM 3.5 mmol/L (3.5-5.1); SODIUM SERUM 143 mmol/L (136-145)
--- NOTE | 2019-04-09 07:11 | NUR ---
BEDSIDE REPORT GIVEN TO JANETT CA.
--- NOTE | 2019-04-09 08:00 | NUR ---
RC'D PT RESTING IN BED WITH NO APPARENT SIGNS OF DISTRESS. A/A/OX1, PT CONFUSED. SPEECH SLOW/CONFUSED. ON TELE, NO S/S OF CHEST PAIN/PRESSURE. PALP PULSES, NO EDEMA NOTED. RESPIRAITONS EQUAL AND LABORED. WHEEZE NOTED. ON 2L O12 VIA NC, NO S/S OF RESP DISTRESS. ABDOMEN SOFT AND NONTENDER. ACTIVE BS. NO S/S OF N/V. INCONTINENT.. GENERALIZED WEAKNESS, LEFT SIDED WEAKNESS. REPOSTIION Q2H PER PROTOCOL. AIR MATTRESS IN PLACE. NO APPARENT S/S OF PAIN AT THIS TIME. IV PATENT AND INTACT. BED IN LOW POSITION. CALL LIGHT IN REACH. WIKLL CONTINUE TO MONITOR
--- NOTE | 2019-04-09 09:00 | NUR ---
AM MEDICATIONS GIVEN. PT TOLERATED WELL. RESPIRATIONS EQUAL. ON 2L O2 VIA NCM NO RESP DISTRESS NOTED. BED IN LOW POSITION. CALL LIGHT IN REACH. WILL CONTINUE TO MONITOR
--- NOTE | 2019-04-09 09:30 | NUR ---
PT GIVEN BEDBATH AT THIS TIME. WILL CONTINUE TO MONITOR
[2019-04-09 09:49] VITALS: BP 130/95
--- NOTE | 2019-04-09 12:30 | NUR ---
PT RESTING IN BED WITH NO APPARENT SIGNS OF DISTRESS. RESPIRATIONS EQUAL, ON 2L O2 VIA NC, NO RESP DISTRESS NOTED. O2 SAT 96% AT THIS TIME. NO S/S OF PAIN. BED IN LOW POSITION. CALL LIGHT IN REACH. WILL CONTINUE TO MONITOR
[2019-04-09 16:33] VITALS: BP 137/89
--- NOTE | 2019-04-09 18:50 | NUR ---
PT RESTING IN BED WITH NO APPARENT SIGNS OF DISTRESS. MEDSURG. NO APPARENT S/S OF CP/PAIN. RESPIRATIONS EQUAL, NO S/S OF RESP DISTRESS. GENERALIZED WEAKNESS. AIR MATTRESS IN PLACE. IV PATENT AND INTACT. BED IN LOW POSITION. CALL LIGHT IN REACH. WILL ENDORSE TO FLOUR MIXER HELPER RN
--- NOTE | 2019-04-09 20:32 | NUR ---
AWAKE ORIENTED, VERBAL SLOW GARBLED SPEECH COMPREHENSIVE, LABORED BREATHING ON EXERTION NO DISTRESS ON 02 @ 2L/MIN NC, AUDIBLE EXPIRATORY WHEEZES, NO COUGHING, SATURATING 94%, RT PROT FOR TX, GEN WEAKNESS, NEEDS ASSIST FOR BED MOBILITY, LT SIDE LIMITED, IV ACCESS RFA PATENT NON INFIL, DENIES PAIN SHIFT ASSESSMENT DONE, ATTENDED NEEDS, SON AT BEDSIDE FOR VISIT CONT TO MONITOR.
[2019-04-09 21:32] VITALS: BP 127/93
--- NOTE | 2019-04-09 22:13 | NUR ---
RT PUT PT ON BIPAP FOR 30 MIN PT REMOVED IT STATED IT'S TOO MUCH, RT PUT BACK ON 02 NC @ 3L/MIN SATURATING 96%, APPEARED COMFORTABLE ON O2 VIA NC, HAS OCC COUGHING MOIST NON PRODUCTIVE, NO DISTRESS, DUE MEDS GIVEN, COVERED 3UNITS OF REG INSULIN PER SS FOR BS 182 MG/DL, PT ASKING FOR MEDICATION TO MAKE HIM SLEEP STATED THAT HE DON'T HAVE GOOD SLEEP, AMBIEN PO GIVEN PER PRN ORDER, WILL CONT TO MONITOR.
--- NOTE | 2019-04-10 03:28 | NUR ---
PT AWAKE PROFUSED SWEATING NOTED BS RECHECKED 124MG/DL, CHANGED BED LINENS KEEP COMFORTABLE, NO DISTRESS DENIES PAIN, PT HAS EPISODES OF TAKING OUT NC EXPLAINED NECESSITY OF KEEPING ON THE OXYGEN RECEPTIVE TO ALL TEACHINGS, REPOSITIONED TO COMFORT, CALL LIGHT AT REACH, CONT TO MONITOR.
[2019-04-10 05:30] VITALS: BP 138/93
--- NOTE | 2019-04-10 06:20 | NUR ---
PT WITH AUDIBLE WHEEZING AND LABORED BREATHING SATURATING 100% WITH 2L 02/NC, RT GAVE HHN TX PER PROTOCOL AND PUT PT BACK ON FOR BIPAP EVA WELL NO DISTRESS PT AGREES TO HAVE BIPAP ON AT THIS TIME, KEEP DRY AND CLEAN, BS 110MG/DL, CONT TO MONITOR.
[2019-04-10 07:34] LABS: PLATELET COUNT 254 x10^3mcL (130-400); RED CELL DISTRIBUTION WIDTH 14.4 % (11.5-14.5)
[2019-04-10 07:36] LABS: BASOPHIL % 0 % (0-2)
--- NOTE | 2019-04-10 07:50 | NUR ---
RC'D PT RESTING IN BED WITH NO APPARENT SIGNS OF DISTRESS. A/A/O/X1, SPEECH CONFUSED. SPEECH APPROPRIATE AT TIMES. HX OF CVA. MEDSURG. NO APPARENT S/S OF CP. PALP PULSES, NO EDEMA NOTED. RESPIRAITONS EQUAL. WHEEZE NOTED. ON BIPAP AT THIS TIME. ABDOMEN SOFT AND NONTEDNER. ACTIVE BS. DENIES N/V. INCONTINEN. GENERALIZED WEAKENSS. LEFT SIDED WEAKNESS. AIR MATTRESS IN PLACE. IV PATENT AND INTACT. BED IN LOW POSITION. CALL LIGHT IN REACH. WILL CONTINUE TO MONITOR
[2019-04-10 07:51] LABS: CALCIUM 8.7 mg/dL (8.5-10.1); CARBON DIOXIDE 29.7 mmol/L (21-32); CHLORIDE SERUM 105 mmol/L (98-107); CREATININE SERUM 0.8 mg/dL (0.7-1.3); GFR1 > 60 mL/min; GLUCOSE SERUM 107 mg/dL (74-106); MAGNESIUM 1.9 mg/dL (1.8-2.4); PHOSPHOROUS 3.1 mg/dL (2.5-4.9); POTASSIUM SERUM 3.5 mmol/L (3.5-5.1); SODIUM SERUM 143 mmol/L (136-145)
[2019-04-10 08:35] VITALS: BP 138/93
[2019-04-10 09:00] VITALS: BP 135/85
--- NOTE | 2019-04-10 11:25 | NUR ---
PT RESTING IN BED WITH NO APPARENT SIGNS OF DISTRESS.R ESPIRATIONSE QUAL AND UNLABORED. PT DENIES SOB AT THIS TIME. PT DENIES PAIN AT THIS TIME. BED IN LOW PSOTIION.C ALL LIGHT IN REACH. WILL CONTINUE TO MONITOR
--- NOTE | 2019-04-10 12:00 | NUR ---
SCREEN FOR LOW LIDIA SCALE AT RISK RECOMMENDATION PRESSURE ULCER INJURY PREVENTION INTERVENTIONS. -TURN AND REPOSITION PATIENT Q 2H OFFLOAD LEFT AND RIGHT HIPS -ASSESS AND MONITOR SKIN CONDITION DURING POSITION CHANGE -OFFLOAD BILATERAL HEELS BY PLACING PILLOWS UNDER CALVES AT ALL TIMES, UNLESS OTHERWISE CONTRAINDICATED -PRESSURE REDISTRIBUTION SURFACE THERAPY -KEEP SKIN CLEAN AND DRY AT ALL TIMES.
--- NOTE | 2019-04-10 14:16 | NUR ---
PHYSICAL THERAPY DAILY NOTES CO-SIGN All documentation done by the [facility] Alarm Operator for 04/10/19 has been reviewed. I agree with the documentation. Reviewed/Co-Signed by: Sheryl Chinchilla PT Documentation Done by:CLARISSA BRICEÑO PTA
--- NOTE | 2019-04-10 17:10 | NUR ---
PT RESTING IN BED WITH NO APPARENT SIGNS OF DISTRESS. MEDSURG. DENIES CHEST PAIN/PRESSURE. RESPIRATIONS EQUAL AND UNLABORED. ON 2L VIA NC, DENEIS SOB. INCOTINTENT. PT REQUESTING BACLOFEN, MEDICATED PER EMAR. IV PATENT AND INTACT. BED IN LOW POSITION. CALL LIGHT IN REACH. WILL ENDORSE TO NGT SHIFT RN
[2019-04-10 17:40] VITALS: BP 126/88
--- NOTE | 2019-04-10 19:10 | NUR ---
PT RECIEVED FROM THE DAY SHIFT RN. PT IS ALERT AND ORIENTED X2. PT IS CALM AND COOPERATIVE WITH CARE AT THIS TIME. NO ACUTE DISTRESS NOTED. SAFETY AND COMFORT MEASURES MAINTAINED, BED IN LOWEST POSITION, CALL LIGHT WITHIN REACH.
[2019-04-10 20:54] VITALS: BP 130/94
--- NOTE | 2019-04-11 00:25 | NUR ---
PT IS RESTING IN BED WITH EYES CLOSED AT THIS TIME. NO ACUTE DISTRESS NOTED. PT HAS BEEN ALERT AND ORIENTED TO PERSON ONLY. CALM AND COOPERATIVE WITH CARE. SAFETY AND COMFORT MEASURES MAINTAINED, BED IN LOWEST POSITION, CALL LIGHT WITHIN REACH, WILL CONTINUE TO MONITOR AT THIS TIME.
--- NOTE | 2019-04-11 03:25 | NUR ---
PT IS RESTING IN BED WITH EYES CLOSED AT THIS TIME. NO ACUTE DISTRESS NOTED. NO S/S OF PAIN NOTED. PT HAS BEEN ALERT AND ORIENTED X1, IV INFUSING AND INTACT.
[2019-04-11 05:03] VITALS: BP 148/96
--- NOTE | 2019-04-11 05:20 | NUR ---
PT HAS SLEPT IN INTERMITTENT INTERVALS THROUGHOUT THE SHIFT, PT HAS BEEN CALM AND COOPERATIVE WITH CARE. PT HAS BEEN ALERT AND ORIENTED TO PERSON ONLY. PT HAS NO COMPLAINT OF PAIN AT THIS TIME. SAFETY AND COMFORT MEASURES MAINTAINED, BED IN LOWEST POSITION, CALL LIGHT WITHIN REACH. AIR MATTRESS IN PLACE. WILL ENDORSE CONTINUITY OF CARE TO THE ONCOMING RN.
--- NOTE | 2019-04-11 07:05 | NUR ---
RECEIVED PT FROM NIGHT NURSE. PT IS LAYING DOWN IN BED WITH HOB UP ON 3L NC. RESPIRATIONS EVEN AND UNLABORED. PT LOOKS TO BE IN NO ACUTE DISTRESS AND DENIES ANY PAIN AT THIS TIME. PT AOX1 TO PERSON ONLY. IV SITE PATENT WITH NO SIGNS OF ERYTHEMA OR SWELLING WITH IV FLUIDS INFUSING. BED IN LOWEST POSITION. AIR MATTRESS PRESENT. CALL LIGHT WITHIN REACH. WILL CONTINUE TO MONITOR.
[2019-04-11 08:18] VITALS: BP 131/92
[2019-04-11 11:41] VITALS: BP 141/96
--- NOTE | 2019-04-11 13:26 | NUR ---
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 107H, WBC 11.6H, Hgb. 13.6, Hct 40L (04/06) A1C 5.3 Meds: Ambien, Colace, Dextrose 50% water, Humulin, Lipitor, Mag-Ox 400, Neutra-phos packet, Oscal 500mg w/Vit. D, Precision PCX Blood Glucose Strips, Protonix packet, Sodium Chl 0.9%, Zofran, heparin sodium Diet: CCHO PO Intake: (04/08) CCHO B-100%, CCHO L-40%, Cardiac D-100%, (04/10) CCHO B-80%, CCHO L-50%, CCHO D-75% Ht: 175cm, 68in Wt: 77kg, 169# BMI: 25.1kg/m2 (Normal) Bed scale: 202# IBW: 154#, 70kg %IBW: 109% UBW: 195-200# Age: 63/M Food Allergies: NKFA Skin: Intact Dheeraj: 14 Edema: None GI: Last BM: None noted, Pt did not say he had one. Per H&P: Enoch Duran is a 63yo male with PMH of HTN, DM, CVA x3 (last one in 2014) w/residual dysarthria who was brought to the ER by ambulance from home with complaints of weakness and fever. Patient states that he was at [facility] yesterday where he was treated for pneuonia and eventually discharged home on Azithromycin and Mucinex. Today, however, patient continued to have fever and, per , patient was "not being his usual self" and she was worried he might be "having another stroke", which prompted her to call 911. Per EMS report, patient had a fever of 102.4F on the field and was very diaphoretic for which he was treated with Albuterol. Patient otherwise denies nausea, vomiting, recent travel, sick contacts, diarrhea or urinary symptoms. Pt Visit: Pt was awake when I entered the room and he had a hard time hearing and understanding the questions I was asking him. Pt said he enjoyed the food and that he has someone at home prepare his meals. He is not sure what kind of diet he has at home. Pt stated he eats what they give him. He did say he takes his insulin at home for his DM. Discussed eating small frequent meals to control blood sugar and continuing with his insulin that the doctor prescribed. Pt said he ate 4 meals a day and I showed him the sample menu from [facility] Type 2 Diabetes packet. Problem with: N: No V: No D: No C: No Problems with: Chewing: None Swallowing: None Current appetite: Good Recent wt change: None %wt change: None Vitamin/Supplement use: pt states is given a Multi-Vit 1x/day Special diet at home: No Physical activity: None Education: Gave [facility] MNT for Type 2 Diabetes to pt. Went over CHO counting and showed the list of foods that contain carbohydrates. Estimated Nutritional Needs Based on actual body weight 77kg Energy: 1920-2300kcal/d (25-30kcal/kg) (Due to maintenance) Protein: 77-92g/d (1.0-1.2g/kg) (Due to preserving lean body mass) Fluid: 1920-2300ml/d (1 ml/kcal) or per doctor Nutrition Diagnosis 1. Food and nutrition-related knowledge deficit r/t lack of prior nutrition education aeb pt reporting lack of knowledge about diabetic diet. Intervention 1. Continue with [facility] diet 2. Diabetic diet education given Monitor/Evaluate Goal: PO intake at least 75% of estimated needs Monitor: PO intake, Labs, GI function LR F/U 04/18
--- NOTE | 2019-04-11 13:26 | NUR ---
Intervention 1. [facility] with [facility] diet 2. Diabetic diet education given
--- NOTE | 2019-04-11 14:00 | NUR ---
FAMILY MEMBER AT BEDSIDE. SPOKE TO [employer]IFOLD BUILDER TO STATED PT HAS BEEN ACCEPTED TO [facility] IN [place]. FAMILY MEMBER AGREED TO TRANSFER AND STATED THAT SHE WILL NEED TO SIGN FOR THE TRANSFER. INFORMED FAMILY MEMBER THAT TRANSFER WILL NOT BE UNTIL TOMORROW AND CAN COME TOMORROW TO SIGN, FAMILY MEMBER VERBALIZED UNDERSTANDING. FAMILY MEMBER CONFIRMED THAT THE PT CAN SIT IN A WHEELCHAIR BUT WILL NEED ASSISTANCE IN TRANSFERING TO A WHEELCHAIR IN CASE THE NEED FOR A WHEELCHAIR TRANSFER IS NEEDED. FAMILY MEMBER STATED WILL RETURN TOMORROW TO SIGN TRANSFER PAPERWORK.
--- NOTE | 2019-04-11 14:10 | NUR ---
PHYSICAL THERAPY DAILY NOTES CO-SIGN All documentation done by the Grinder Chipper for 04/11/19 has been reviewed. I agree with the documentation. Reviewed/Co-Signed by: Sheryl Chinchilla PT Documentation Done by:CLARISSA BRICEÑO PTA
[2019-04-11 16:13] VITALS: BP 136/89
--- NOTE | 2019-04-11 17:47 | NUR ---
PT COMPLAINING OF ABD PAIN AND IS REQUESTING TYLENOL BY NAME. FAMILY MEMBER AT BEDSIDE. WILL MEDICATE ACCORDING TO EMAR.
--- NOTE | 2019-04-11 18:39 | NUR ---
PT IS LAYING DOWN IN BED WITH HOB UP. RESPIRATIONS EVEN AND UNLABORED ON 2L NC. PT LOOKS TO BE IN NO ACUTE DISTRESS AT THIS TIME. PT IS AOX1 AND PT MUMBLES AT TIMES WHEN SPEAKING BUT DOES RESPOND TO VERBAL COMMANDS. IV SITE PATENT WITH NO SIGNS OF ERYTHEMA OR SWELLING. BED IN LOWEST POSITION. WILL ENDORSE TO ONCOMING SHIFT.
--- NOTE | 2019-04-11 19:15 | NUR ---
CARE ASSUMED FROM OUTGOING RN. PT RESTING COMFORTABLY IN BED. NO ACUTE DISTRESS NOTED. AWAKE, ORIENTED TO PERSON. EVEN AND UNLABORED RESPIRATIONS ON 2LNC. AIR MATTRESS IN USE. IV PATENT AND INTACT RUNNING FLUIDS PER EMAR. BED IN LOWEST POSITION. SIDE RAILS UP X2. CALL LIGHT WITHIN REACH. WILL CONTINUE TO MONITOR.
[2019-04-11 20:00] VITALS: BP 124/87
--- NOTE | 2019-04-12 00:27 | NUR ---
PT SLEEPING COMFORTABLY IN BED. NO ACUTE DISTRESS NOTED. EVEN AND UNLABORED RESPIRATIONS NOTED ON 2LNC. IV PATENT AND INTACT RUNNING FLUIDS PER EMAR. AIR MATTRESS IN USE. BED IN LOWEST POSITION. SIDE RAILS UP X2. CALL LIGHT WITHIN REACH. WILL CONTINUE TO MONITOR.
[2019-04-12 04:31] VITALS: BP 121/93
[2019-04-12 06:39] LABS: BASOPHIL % 0.2 % (0-2); PLATELET COUNT 306 x10^3mcL (130-400); RED CELL DISTRIBUTION WIDTH 14.1 % (11.5-14.5)
--- NOTE | 2019-04-12 06:39 | NUR ---
PT SLEPT COMFORTABLY IN INTERVALS THROUGHOUT THE NIGHT. NO ACUTE CHANGES OR DISTRESS NOTED. EVEN AND UNLABORED RESPIRATIONS ON 2LNC. ALL NEEDS TENDED TO AND MET. ALL SCHEDULED MEDICATIONS GIVEN ON TIME. FASTING BLOOD SUGARS CHECKED, 172 AND 84, AND COVERED WITH INSULIN PER EMAR. AIR MATRESS IN USE. REPOSITIONED PT PER PROTOCOL. BED IN LOWEST POSITION. SIDE RAILS UP X2. CALL LIGHT WITHIN REACH. WILL ENDORSE TO ONCOMING SHIFT.
--- NOTE | 2019-04-12 07:05 | NUR ---
RECIEVED PT FROM NIGHT NURSE. PT IS LAYING DOWN IN BED WITH HOB UP AND EYES CLOSED. PT EASILY AROUSABLE AND RESPONSIVE TO VERBAL COMMANDS. PT AOX1 TO PERSON ONLY. RESPIRATIONS EVEN AND UNLABORED ON 2L NC. EXPIRATORY WHEEZING PRESENT BILATERALLY UPON ASCULTATION. PT LOOKS TO BE IN NO ACUTE DISTRESS AT THIS TIME AND DENIES ANY PAIN. PT ON AIR MATTRESS, SKIN INTACT WITH NO SIGNS OF BREAKDOWN. IV SITE LOOKS PATENT WITH NO SIGNS OF ERYTHEMA OR SWELLIN WITH IV FLUIDS INFUSING. BED IN LOWEST POSITION. CALL LIGHT WITHIN REACH. WILL CONTINUE TO MONITOR.
[2019-04-12 08:05] LABS: CALCIUM 9.1 mg/dL (8.5-10.1); CARBON DIOXIDE 32.5 mmol/L (21-32); CHLORIDE SERUM 100 mmol/L (98-107); CREATININE SERUM 0.8 mg/dL (0.7-1.3); GFR1 > 60 mL/min; GLUCOSE SERUM 94 mg/dL (74-106); POTASSIUM SERUM 3.5 mmol/L (3.5-5.1); SODIUM SERUM 141 mmol/L (136-145)
[2019-04-12] MEDS ORDERED: ROC1I IV (09:00)
[2019-04-12] MEDS ORDERED: DOXY 100100 MG IV (09:01)
[2019-04-12] MEDS ORDERED: SOL40I IV (09:02)
--- NOTE | 2019-04-12 09:30 | NUR ---
PT IV SITE LEAKING WELL WARM TO THE TOUCH. WILL CHANGE IV SITE. PT AGREED TO NEW IV SITE
[2019-04-12 09:37] VITALS: BP 133/87
[2019-04-12 13:17] VITALS: BP 133/87
--- NOTE | 2019-04-12 13:45 | NUR ---
PT FOUND LAYING DOWN IN BED WITH HOB UP. SKIN DUSKY AND PT DIAPHORETIC AND STATED HAVING DIFFICULTY BREATHING AND COUGHING. O2 SAT WAS 83% AND HEART RATE 139. O2 THERAPY INCREASED TO 5LNC. PT O2 SATURATION NOW AT 95% AND HEART RATE NOW AT 101. PT LOOKS TO BE IN NO ACUTE DISTRESS AT THIS TIME. O2 THERAPY TITRATED DOWN TO 3L NC AND IS SATTING AT 96%, SKIN COLOR JAYSON AND PT DENIES ANY DIFFICUTLY BREATHING AND NO LONGER COUGHING. RT CALLED IN TO ASSESS PT AND IS NOW AT BEDSIDE. FAMILY MEMBERS AT BEDSIDE. WILL CONTINUE TO MONITOR.
--- NOTE | 2019-04-12 13:45 | NUR ---
GAVE REPORT TO JANETT GEORGE AT [facility]. PT SCHEDULED TO BE TRANSFERED TO [facility] AT [address] GELLER, ROOM 52.
--- NOTE | 2019-04-12 15:54 | NUR ---
PT AWAKE, ALERT AND ORIENTED TO PERSON ONLY AT TIME OF TRANSFER. PT TRANSFERED MAXIMILIANO ARREGUIN, WILL BE GOING TO ROOM [address] GELLER. PT ACCOMPANIED BY FAMILY MEMBER AND TRANSPORT TEAM. PT'S SISTER SIGNED TRANSFER PAPERWORK AND VERBALIZED UNDERSTANDING OF EDUCATION PROVIDED. TRANSFER PAPERWORK PROVIDED TO TRANPORT TEAM. PT AND FAMILY MEMBER AGREEABLE TO TRANSFER.
== END 2019-04-12 15:06 | DRG 871 ==
LOC: ED 23:26 → DU 04-07 01:04 → MU 04-09 21:49
PROVIDERS: Emergency Medicine; Internal Medicine; ADMIT Family Medicine
DX: A41.9 Sepsis, unspecified organism (principal); N17.0 Acute kidney failure with tubular necrosis; J69.0 Pneumonitis due to inhalation of food and vomit; I69.354 Hemiplegia and hemiparesis following cerebral infarction affecting left non-dominant side; J98.11 Atelectasis; E11.9 Type 2 diabetes mellitus without complications; G25.2 Other specified forms of tremor; E83.42 Hypomagnesemia; E83.39 Other disorders of phosphorus metabolism; E83.51 Hypocalcemia; E87.6 Hypokalemia; R80.9 Proteinuria, unspecified; I10 Essential (primary) hypertension; Z79.4 Long term (current) use of insulin; I69.393 Ataxia following cerebral infarction; I69.322 Dysarthria following cerebral infarction
CPT/HCPCS: 36600; 82962; 83880; 84439; 94150; 97110-GP; 97530-GP; J0696; J1644; J2543; J2920; J3490; J7030; J7620; J7626; Q0092

== ENCOUNTER 2019-07-14 12:52 | Emergency (ER) | payer OTHER ==
[~2019-07-14] VITALS: Ht 175.3 cm; Wt 79.4 kg
[~2019-07-14 12:52] MED LIST changes: +AMLODIPINE BESY10 M2 PO; +BACLOFEN20 MG PO; +DOXY 100100 MG IV; +LANTUS SOLOS100 U/M1 SQ; +ROC1I IV; +SOL40I IV; +V5 PO
[2019-07-14 13:08] VITALS: Ht 175.3 cm; Wt 79.4 kg
[2019-07-14 14:38] VITALS: BP 113/87
== END 2019-07-14 14:38 | disposition home or self-care (01) ==
LOC: ED 12:52
DX: R51 Headache (principal); M79.602 Pain in left arm; E11.40 Type 2 diabetes mellitus with diabetic neuropathy, unspecified; I10 Essential (primary) hypertension; E78.00 Pure hypercholesterolemia, unspecified; G81.94 Hemiplegia, unspecified affecting left nondominant side; Z86.73 Personal history of transient ischemic attack (TIA), and cerebral infarction without residual deficits; Z88.1 Allergy status to other antibiotic agents; Z88.8 Allergy status to other drugs, medicaments and biological substances
CPT/HCPCS: J1100; J1885